=== PATIENT | male | born 1960 | race Caucasian/White ===

== ENCOUNTER → 2024-01-02 12:32 | Outpatient (REF) | payer MEDICARE, OTHER, SELFPAY ==
[2024-01-02 13:38] LABS: % Basophils 0.9 % (0-2); % Eosinophils 0.7 % (0-6); % Immature Granulocytes 0.4 % (0-0.5); % Monocytes 8.5 % (1.7-9.3); % Neutrophils 72.5 % (42.2-75.2); Absolute Basophils 0.1 10^3/uL (0-0.2); Absolute Eosinophils 0.1 10^3/uL (0-0.7); Absolute Lymphocytes 1.3 10^3/uL (1.2-3.4); Absolute Monocytes 0.7 10^3/uL (0.1-0.6); Absolute Neutrophils 5.5 10^3/uL (1.4-6.5); Hematocrit 49.3 % (39.0-52.0); Hemoglobin 17.4 g/dL (13.0-18.0); Mean Corp Hgb Conc. 35.3 g/dL (33.0-37.0); Mean Corpuscular Hgb 31.4 pg (27.0-31.0); Mean Platelet Volume 9.4 fL (7.4-10.4); Nucleated Red Blood Cells % 0 % (-); Platelet Count 239 10^3/uL (130-400); Red Blood Cell Count 5.54 10^6/uL (4.70-6.10); Red Cell Dist. Width 12.5 % (11.5-14.5); White Blood Cell Count 7.6 10^3/uL (4.8-10.8)
[2024-01-02 14:09] LABS: Iron 182 ug/dl (49-181)
[2024-01-02 14:20] LABS: Percent Saturation 77 % (20-50); Total Iron Binding Capacity 235 ug/dl (261-462)
== END ==
LOC: REG 12:32
PROVIDERS: ATTENDING PHYSICIAN Internal Medicine Hematology & Oncology; FAMILY PHYSICIAN Internal Medicine
DX: E83.110 Hereditary hemochromatosis (principal); C64.2 Malignant neoplasm of left kidney, except renal pelvis; Q44.6 Cystic disease of liver
CPT/HCPCS: 36415; 82728; 83540; 83550; 85025

== ENCOUNTER 2024-01-11 13:18 | Outpatient (RCR) | payer MEDICARE, OTHER, SELFPAY ==
[2024-01-11 13:52] VITALS: BP 120/72
[2024-01-11 14:18] VITALS: BP 107/74
[2024-01-11 14:20] VITALS: BP 106/68
[2024-01-11 14:32] VITALS: BP 109/72
[2024-01-11 14:45] VITALS: BP 94/62
== END 2024-01-17 23:59 | disposition home or self-care (01) ==
LOC: OID 13:18
PROVIDERS: ATTENDING PHYSICIAN Internal Medicine Hematology & Oncology; FAMILY PHYSICIAN Internal Medicine
DX: E83.110 Hereditary hemochromatosis (principal); C64.2 Malignant neoplasm of left kidney, except renal pelvis; Q44.6 Cystic disease of liver
CPT/HCPCS: 99195

== ENCOUNTER → 2024-01-21 14:41 | Outpatient (REF) | payer MEDICARE, OTHER, SELFPAY | LOC: HWRAD 14:41 | PROVIDERS: ATTENDING PHYSICIAN Internal Medicine | DX: M54.50 Low back pain, unspecified (principal); G89.29 Other chronic pain; M54.6 Pain in thoracic spine | CPT/HCPCS: 72072; 72110 ==

== ENCOUNTER → 2024-02-23 08:41 | Outpatient (REF) | payer MEDICARE, OTHER, SELFPAY ==
[2024-02-23 10:04] LABS: ALT (SGPT) 26 U/L (0-50); AST (SGOT) 30 U/L (17-59); Albumin 4.3 g/dl (3.5-5.0); Alkaline Phosphatase 71 U/L (38-126); Blood Urea Nitrogen 18 mg/dl (9-20); Calcium 9.4 mg/dl (8.4-10.2); Carbon Dioxide 31 mmol/L (22-30); Chloride 100 mmol/L (98-107); Glucose 92 mg/dl (70-99); HDL Cholesterol 88 mg/dl; LDL Cholesterol, Calculated 131 mg/dl; Potassium 4.7 mmol/L (3.5-5.1); Sodium 137 mmol/L (135-145); Total Bilirubin 1.2 mg/dl (0.2-1.3); Total Cholesterol 236 mg/dl (50-199); Total Protein 6.6 g/dl (6.3-8.2); Triglyceride 86 mg/dl (10-149); Very Low Density Lipoprotein 17 mg/dl (0-30); eGFR > 60.00
[2024-02-23 10:19] LABS: Free T3 3.27 pg/ml (2.77-5.27); Free T4 1.24 ng/dl (0.78-2.19)
[2024-02-23 10:32] LABS: PSA, Total - Screen 1.21 ng/ml (0.0-4.0)
[2024-02-23 11:11] LABS: TSH 0.81 uIU/ml (0.47-4.68)
== END ==
LOC: REG 08:41
PROVIDERS: ATTENDING PHYSICIAN Internal Medicine
DX: E27.40 Unspecified adrenocortical insufficiency (principal); R16.0 Hepatomegaly, not elsewhere classified; E78.5 Hyperlipidemia, unspecified; E03.9 Hypothyroidism, unspecified; Z12.5 Encounter for screening for malignant neoplasm of prostate
CPT/HCPCS: 36415; 80053; 80061; 84439; 84443; 84481; G0103

== ENCOUNTER → 2024-05-19 06:44 | Outpatient (REF) | payer MEDICARE, OTHER, SELFPAY | LOC: PAVMRI 06:44 | PROVIDERS: ATTENDING PHYSICIAN Physical Medicine & Rehabilitation; FAMILY PHYSICIAN Internal Medicine | DX: M48.07 Spinal stenosis, lumbosacral region (principal); M48.062 Spinal stenosis, lumbar region with neurogenic claudication; M43.16 Spondylolisthesis, lumbar region; M43.17 Spondylolisthesis, lumbosacral region | CPT/HCPCS: 72148 ==

== ENCOUNTER → 2024-05-20 10:57 | Outpatient (REF) | payer MEDICARE, OTHER, SELFPAY ==
[2024-05-20 12:07] LABS: % Basophils 0.9 % (0-2); % Eosinophils 0.9 % (0-6); % Immature Granulocytes 0.4 % (0-0.5); % Monocytes 10.5 % (1.7-9.3); % Neutrophils 71.3 % (42.2-75.2); Absolute Basophils 0.1 10^3/uL (0-0.2); Absolute Eosinophils 0.1 10^3/uL (0-0.7); Absolute Lymphocytes 1.2 10^3/uL (1.2-3.4); Absolute Monocytes 0.8 10^3/uL (0.1-0.6); Absolute Neutrophils 5.3 10^3/uL (1.4-6.5); Hematocrit 48.1 % (39.0-52.0); Hemoglobin 16.7 g/dL (13.0-18.0); Mean Corp Hgb Conc. 34.7 g/dL (33.0-37.0); Mean Corpuscular Hgb 31.9 pg (27.0-31.0); Mean Platelet Volume 9.2 fL (7.4-10.4); Nucleated Red Blood Cells % 0 % (-); Platelet Count 243 10^3/uL (130-400); Red Blood Cell Count 5.23 10^6/uL (4.70-6.10); Red Cell Dist. Width 12.7 % (11.5-14.5); White Blood Cell Count 7.4 10^3/uL (4.8-10.8)
[2024-05-20 12:27] LABS: Iron 174 ug/dl (49-181)
[2024-05-20 12:37] LABS: Percent Saturation 71 % (20-50); Total Iron Binding Capacity 242 ug/dl (261-462)
[2024-05-20 13:05] LABS: Ferritin 99.8 ng/ml (17.9-464.0)
== END ==
LOC: REG 10:57
PROVIDERS: ATTENDING PHYSICIAN Internal Medicine Hematology & Oncology; FAMILY PHYSICIAN Internal Medicine
DX: E83.110 Hereditary hemochromatosis (principal); C64.2 Malignant neoplasm of left kidney, except renal pelvis; Q44.6 Cystic disease of liver; K76.89 Other specified diseases of liver
CPT/HCPCS: 36415; 82728; 83540; 83550; 85025

== ENCOUNTER → 2024-09-16 11:19 | Outpatient (REF) | payer MEDICARE, OTHER, SELFPAY ==
[2024-09-16 12:17] LABS: Hematocrit 47.7 % (39.0-52.0); Hemoglobin 16.6 g/dL (13.0-18.0); Mean Corp Hgb Conc. 34.8 g/dL (33.0-37.0); Mean Corpuscular Volume 91.9 fL (80.0-94.0); Nucleated Red Blood Cells % 0 % (-); Platelet Count 254 10^3/uL (130-400); Red Cell Dist. Width 12.7 % (11.5-14.5)
[2024-09-16 12:48] LABS: Iron 177 ug/dl (49-181)
[2024-09-16 13:00] LABS: Total Iron Binding Capacity 256 ug/dl (261-462)
[2024-09-16 13:24] LABS: Ferritin 161.0 ng/ml (17.9-464.0)
== END ==
LOC: REG 11:19
PROVIDERS: ATTENDING PHYSICIAN Internal Medicine Hematology & Oncology; FAMILY PHYSICIAN Internal Medicine
DX: E83.110 Hereditary hemochromatosis (principal); C64.2 Malignant neoplasm of left kidney, except renal pelvis; Q44.6 Cystic disease of liver
CPT/HCPCS: 36415; 82728; 83540; 83550; 85025

== ENCOUNTER → 2024-11-21 10:39 | Outpatient (REF) | payer MEDICARE, OTHER, SELFPAY ==
[2024-11-21 11:50] LABS: Blood Urea Nitrogen 23 mg/dl (9-20); Iron 226 ug/dl (49-181)
[2024-11-21 11:59] LABS: Total Iron Binding Capacity 241 ug/dl (261-462)
[2024-11-21 12:49] LABS: Hematocrit 47.9 % (39.0-52.0); Hemoglobin 17.0 g/dL (13.0-18.0); Mean Corp Hgb Conc. 35.5 g/dL (33.0-37.0); Mean Corpuscular Volume 92.8 fL (80.0-94.0); Nucleated Red Blood Cells % 0 % (-); Platelet Count 250 10^3/uL (130-400); Red Cell Dist. Width 12.7 % (11.5-14.5)
[2024-11-21 13:52] LABS: Ferritin 200.0 ng/ml (17.9-464.0)
== END ==
LOC: MRI 3T 10:39
PROVIDERS: ATTENDING PHYSICIAN Physical Medicine & Rehabilitation; FAMILY PHYSICIAN Internal Medicine
DX: M54.16 Radiculopathy, lumbar region (principal); Z01.812 Encounter for preprocedural laboratory examination; C64.2 Malignant neoplasm of left kidney, except renal pelvis; E83.110 Hereditary hemochromatosis
CPT/HCPCS: 36415; 72146; 82565; 82728; 83540; 83550; 84520; 85025

== ENCOUNTER → 2024-12-16 13:23 | Outpatient (REF) | payer MEDICARE, OTHER, SELFPAY | LOC: PAVMRI 13:23 | PROVIDERS: ATTENDING PHYSICIAN Internal Medicine | DX: Q44.6 Cystic disease of liver (principal); R16.0 Hepatomegaly, not elsewhere classified; D49.0 Neoplasm of unspecified behavior of digestive system | CPT/HCPCS: 74183; A9575 ==

== ENCOUNTER 2024-12-19 13:29 | Outpatient (RCR) | payer MEDICARE, OTHER, SELFPAY ==
[2024-12-19 13:48] VITALS: BP 122/77
[2024-12-19 14:20] VITALS: BP 115/71
[2024-12-19 14:29] VITALS: BP 95/70
[2024-12-19 14:39] VITALS: BP 92/65
[2024-12-19 15:00] VITALS: BP 109/75
== END 2024-12-22 10:10 | disposition home or self-care (01) ==
LOC: OID 13:29
PROVIDERS: ATTENDING PHYSICIAN Internal Medicine Hematology & Oncology; FAMILY PHYSICIAN Internal Medicine
DX: E83.110 Hereditary hemochromatosis (principal); C64.2 Malignant neoplasm of left kidney, except renal pelvis; Q44.6 Cystic disease of liver
CPT/HCPCS: 99195

== ENCOUNTER → 2025-01-21 14:21 | Outpatient (REF) | payer MEDICARE, OTHER, SELFPAY ==
[2025-01-21 19:02] LABS: Urine Character Cloudy (Clear)
[2025-01-21 19:19] LABS: Urine Red Blood Cell 0-2 /HPF (0-2); Urine Squamous Cell 0-2 /LPF (Few); Urine White Cell 0-2 /HPF (0-5)
== END ==
LOC: CLAB 14:21
PROVIDERS: ATTENDING PHYSICIAN Specialist
DX: N39.0 Urinary tract infection, site not specified (principal)
CPT/HCPCS: 81003; 81015; 87086

== ENCOUNTER → 2025-02-18 13:40 | Outpatient (REF) | payer MEDICARE, OTHER, SELFPAY ==
[2025-02-18 14:38] LABS: Hematocrit 51.5 % (39.0-52.0); Hemoglobin 17.6 g/dL (13.0-18.0); Mean Corp Hgb Conc. 34.2 g/dL (33.0-37.0); Mean Corpuscular Volume 93.8 fL (80.0-94.0); Nucleated Red Blood Cells % 0 % (-); Platelet Count 239 10^3/uL (130-400); Red Cell Dist. Width 12.3 % (11.5-14.5)
[2025-02-18 15:21] LABS: Iron 132 ug/dl (49-181)
[2025-02-18 15:30] LABS: Total Iron Binding Capacity 260 ug/dl (261-462)
[2025-02-18 15:35] LABS: Free T3 3.52 pg/ml (2.77-5.27)
[2025-02-18 15:49] LABS: TSH 0.21 uIU/ml (0.47-4.68)
[2025-02-18 15:53] LABS: Ferritin 104.0 ng/ml (17.9-464.0)
== END ==
LOC: REG 13:40
PROVIDERS: ATTENDING PHYSICIAN Internal Medicine Hematology & Oncology; FAMILY PHYSICIAN Student in an Organized Health Care Education/Training Program
DX: E83.110 Hereditary hemochromatosis (principal); C64.2 Malignant neoplasm of left kidney, except renal pelvis; Q44.6 Cystic disease of liver; E03.9 Hypothyroidism, unspecified; R10.9 Unspecified abdominal pain; K76.89 Other specified diseases of liver; N28.89 Other specified disorders of kidney and ureter
CPT/HCPCS: 36415; 71046; 82728; 83540; 83550; 84439; 84443; 84481; 85025

== ENCOUNTER 2025-03-04 06:05 | Day surgery (SDC) | payer MEDICARE, OTHER, SELFPAY ==
[2025-02-25 13:53] VITALS: BMI 27.6
--- NOTE | 2025-02-26 09:47 | PTCARENOTE ---
Patient states he takes multiple supplements but does not know what they are. States he stopped them a week ago and will not resume them until after surgery. Patient instructed to bring printed list with all supplements listed day of surgery if he
could not get them to us prior to surgery.
[2025-03-04] VITALS (17 sets, daily range): BP systolic 5–140; BP diastolic 67–84; BMI 27.6
[2025-03-04] MEDS: NORMOSOL-R/PLASMALYTE-A 1000 IV (06:45)
[2025-03-04] MEDS: SOLU-CORTEF IV (08:05)
--- NOTE | 2025-03-04 10:38 | W.SUR.POST ---
Surgical Immediate Post Op
Note
Pre Op Diagnosis: Left renal mass
Post Op Diagnosis: Left renal mass
Procedure Performed: Robotic L partial nephrectomy, intraoperative ultrasound
Primary Surgeon: Ming
Anesthesia: GETA
Estimated Blood Loss: 50 cc
Fluids: 2.2 L
Drains/Shunts: 16F munoz, 15F LLQ TIARA
Specimens/Cultures: Left renal mass
Complications: NA
Operative Findings: See op report
[2025-03-04] MEDS: DILAUDID 0.5 MG IV ×4 (11:10→12:50)
[2025-03-04 11:11] LABS: Hematocrit 44.9 % (39.0-52.0); Hemoglobin 15.5 g/dL (13.0-18.0); Mean Corp Hgb Conc. 34.5 g/dL (33.0-37.0); Mean Corpuscular Volume 93.5 fL (80.0-94.0); Platelet Count 201 10^3/uL (130-400); Red Cell Dist. Width 12.1 % (11.5-14.5)
--- NOTE | 2025-03-04 11:20 | OR.RPT ---
Operative Report
Operative Report
Surgery Date: 03/04/2025
PREOPERATIVE DIAGNOSIS(ES):
1. Left renal mass.
POSTOPERATIVE DIAGNOSIS(ES):
1. Left renal mass.
PROCEDURE:
1. Robotic assisted laparoscopic left partial nephrectomy.
2. Intraoperative ultrasound with interpretation.
ANESTHESIA:
1. General endotracheal anesthesia
2. Local anesthesia at completion
SURGEON: Veronique Lai MD
ASSISTANTS:
1. YOKASTA Jean Baptiste
2. YOKASTA Page
IV FLUIDS: 2.2 L
ESTIMATED BLOOD LOSS: 50 cc
CLAMP TIME: 19 minutes warm ischemia time
CATHETER
1. 16-Bangladeshi Locke catheter.
2. 15-Bangladeshi TIARA drain.
SPECIMEN:
1. Left renal mass
COMPLICATIONS: None.
DISPOSITION: Stable and extubated to PACU.
Preoperative descriptors:
Mass description: Mass was approximately 2.5 cm in diameter and located in the mid to lower pole of the left kidney. The mass was exophytic and cystic in appearance.
Vessel anatomy: The patient had 1 left renal artery and 1 left renal vein.
Findings:
1. Collecting system entry: There were no sites of collecting system entry.
2. The mass appeared approximately 3 cm, exophytic and cystic in nature with multiple lobulations and a simple appearing lateral cystic portion. No evidence of tumor violation during excision.
INDICATIONS: The patient is a 65 year old male who was referred for evaluation and management of a 2.4 cm left renal mass. Given the concern for malignancy, intervention was recommended. The mass had grown from 1.4 cm to 2.4 cm in 3 years on MRI
imaging and was concerning for neoplasm. The mass was felt to be amenable to nephron sparing surgery, so a robotic assisted laparoscopic partial nephrectomy was offered. After full discussion of treatment options, the patient elected to proceed with
a robot-assisted laparoscopic left partial nephrectomy. The risks and benefits of this approach were discussed with the patient. All questions were answered and he signed the surgical consent.
OPERATIVE NOTE: The patient was seen in the preoperative holding area. All remaining questions were answered and the patient was transferred to the operating room. Here, the patient was correctly identified by the operating room staff. General
anesthesia was induced without incident. The patient was given preoperative doses of ancef. A 16-Bangladeshi Locke catheter was placed per urethra with 10 mL of water in the balloon. This was placed to gravity drainage.
POSITIONING: We placed the patient into a left side up flank position with careful attention paid to all pressure points. The table was flexed. An axillary roll was
placed. The iliac crest was positioned just below the table break. A beanbag was utilized. Rolled towels were placed posteriorly to the patient to prevent the patient from moving toward supine. The patient's downside arm was placed on an arm board
and positioned perpendicular to the axis of the table. The arm was softly padded and secured to the armboard. The upside arm was kept to the patient's side in an anatomic position with the thumb placed outward. The shoulder, forearm, and elbow were
carefully supported and padded, followed by the hands being padded and tape used to secure posteriorly to the table. The downside leg was gently flexed and the upside leg was slightly extended with pillows and blankets used to provide ample support
to all pressure points. Tape was placed securely but not tightly over the hips and chest taking care not to overly tighten the chest strapping in order to secure the patient to the table. After shaving and using a chlorhexidine prep stick, we then
prepped and draped in the usual fashion.
ACCESS: A Veress needle was placed at the lateral rectus line even with the umbilicus without issue and the abdomen was insufflated to develop a pneumoperitoneum. Pneumoperitoneum was 15 mmHg for port placement and thereafter decreased to 12 mmHg
throughout the remainder of the case. We first placed an 8 mm lateral rectus port, followed by the camera. Upon entry into the abdomen, we performed a brief examination noting no abnormalities nor injuries. Next, we visualized placement of 3
additional robotic ports. These were placed in a straight line along the left paramedian line. Three 8mm robotic working ports were placed in addition to the camera port starting a finger's breadth below the costal margin and traveling caudally with
each robotic port spaced approximately a hands breadth from each other to prevent clashing. A 12mm supraumbilical airseal visual merchandising assistant port and infraumbilical 5 mmm visual merchandising assistant port were then placed. After we inserted all the ports and confirmed no
issues with gaining access, we docked the robot.
DISSECTION:
We mobilized the descending colon from Gerota's fascia without any inadvertent injury or bleeding. The tail of the pancreas, splenorenal ligament, and the spleen were mobilized off Gerota's fascia superiorly. The 4th arm was applied early in this
case for improved exposure. We found the left gonadal vein as well as the ureter at the tail of Gerota's fascia. These were carefully lifted off the psoas fascia without any inadvertent injury or problems. Using the 4th arm for lateral traction, we
were able to dissect out the renal hilum using a combination of blunt dissection and focused monopolar cautery. We encountered a small perforating vessel on the inferior aspect of the left renal vein that was cauterized, and the os was then oversewn
with 4-0 Prolene suture. We were able to get a vessea loop around the artery that aided retraction for future bulldog clamping. We then proceeded to fully mobilize the kidney by incising Gerota's fascia. The kidney was mobilized from its attachments
to both Gerota's fascia as well as the perirenal fat as needed so that the mass could be viewed head-on to the camera.
TUMOR LOCALIZATION:
After exposing the kidney, we then took time to properly identify the tumor in the expected location. We used the laparoscopic intraoperative ultrasound drop-in probe to carefully survey the retroperitoneum and study the spatial aspects of the renal
mass before using monopolar cautery to abiel the resection line on the kidney capsule surface.
TUMOR RESECTION:
One bulldog clamps was placed across the renal artery. A renal vein bulldog clamp was not applied. Sharp dissection was used to incise the renal capsule and upward tension helped to clarify the border between the mass and normal parenchyma.
Following the contour of the mass, with care to avoid positive margins, the lesion was dissected off the normal kidney. Along the way small bleeding vessels were cauterized. Sharp dissection continued until the mass was completely excised. A
visually appreciated negative margin was noted throughout the entirety of the mass. The freed specimen was placed in a 10 mm EndoCatch bag.
RENORRHAPHY:
The inner layer of the renorrhaphy was completed with a running 3-0 V-Loc suture with with clips on either end at the level of the capsule. All bleeding vessel lumens were closed with this layer. A second layer was completed with running 0-V-Loc
suture in a horizontal mattress fashion with clips on each side of the defect. This layer was tightened with a sliding clip technique. A surgicel bolster was applied to the renorrhaphy bed before full closure. At this point, the bulldog clamps were
removed. There was no significant arterial bleeding noted from the defect. Additional surgicel bolsters were applied atop the renorrhaphy. Gerota's fascia was then closed using a running 0 V-Loc to re-retroperitonealize the kidney. The vessel loop
was then removed and the oversewn area of the renal vein was reinforced.
EXTRACTION AND CLOSURE: The specimen was extracted from the midline after extension of the 12 mm visual merchandising assistant port incision along the linea alba. A 15-Bangladeshi TIARA drain was placed via the most caudal port along the left paramedian line and secured with
2-0 Nylon. There were no difficulties with extraction and ports were all removed. Next, the fascia of the specimen extraction port was closed using running 0 PDS sutures. All skin incisions were closed with 4-0 Monocryl subcuticular sutures and
Dermabond. Additional local anesthetic was applied at all port sites. Sponge, needle, and instrument counts were correct at the end of the case. The patient was then awoken from general anesthesia and transferred to the PACU in stable
condition.
[2025-03-04] MEDS: NSS with KCL 20 MEQ 1000 IV ×2 (15:35→22:52)
[2025-03-04] MEDS: TYLENOL 325 MG PO ×2 (15:36→22:48)
[2025-03-04] MEDS: SOLU-CORTEF 100 MG IV ×2 (15:36→23:52)
[2025-03-04 15:53] LABS: Blood Urea Nitrogen 14 mg/dl (9-20); Calcium 7.8 mg/dl (8.4-10.2); Carbon Dioxide 24 mmol/L (22-30); Chloride 102 mmol/L (98-107); Estimated Creatinine Clearance 87 ml/min; Glucose 113 mg/dl (70-99); Sodium 130 mmol/L (135-145); eGFR > 60.00
[2025-03-04 15:57] LABS: Potassium 4.0 mmol/L (3.5-5.1)
[2025-03-04] MEDS: MORPHINE SULFATE 2 MG IV ×3 (16:09→23:50)
[2025-03-04] MEDS: ROXICODONE 5 MG PO ×2 (18:33→22:48)
[2025-03-04] MEDS: HEPARIN 5000 UNITS SC (22:47)
[2025-03-05] MEDS: TYLENOL PO ×3 (00:12→06:10)
[2025-03-05] MEDS: ROXICODONE 5 MG PO ×4 (03:21→17:17)
[2025-03-05] MEDS: HEPARIN 5000 UNITS SC ×3 (03:21→21:01)
[2025-03-05] MEDS: SYNTHROID 100 MCG PO (03:21)
[2025-03-05 07:19] LABS: Hematocrit 42.2 % (39.0-52.0); Hemoglobin 14.5 g/dL (13.0-18.0); Mean Corp Hgb Conc. 34.4 g/dL (33.0-37.0); Mean Corpuscular Volume 93.6 fL (80.0-94.0); Platelet Count 198 10^3/uL (130-400); Red Cell Dist. Width 12.4 % (11.5-14.5)
[2025-03-05 07:25] VITALS: BP 134/78
[2025-03-05] MEDS: HYDROCORTONE/CORTEF 50 MG PO ×3 (07:25→23:21)
[2025-03-05 07:43] LABS: Blood Urea Nitrogen 11 mg/dl (9-20); Calcium 8.2 mg/dl (8.4-10.2); Carbon Dioxide 26 mmol/L (22-30); Chloride 107 mmol/L (98-107); Estimated Creatinine Clearance 87 ml/min; Glucose 110 mg/dl (70-99); Potassium 4.2 mmol/L (3.5-5.1); Sodium 135 mmol/L (135-145); eGFR > 60.00
[2025-03-05] MEDS: NSS with KCL 20 MEQ 1000 IV ×2 (09:09→20:27)
[2025-03-05] MEDS: TYLENOL 325 MG PO ×4 (09:10→21:01)
--- NOTE | 2025-03-05 09:49 | W.PN.URO.CBU ---
Today's Communication / Plan
-
F/u H&H at 1200
Regular diet
Pain control
Monitor TIARA drain
Assessment / Plan
-
65M with L renal mass s/p robotic L partial Nx 03/04/25. Postoperatively doing well.
Plan:
- H&H at 1200
- Continue TIARA drain - monitor output
- Serial abd exams
- Regular diet
- Encouraged patient to ambulate to chair today - he is having pain in his left leg that is likely due to post-operative pain in the psoas muscle
- Pain control PRN
- Continue IVF
- Hydrocortisone 50 mg PO q8h today -> transition to home schedule tomorrow
- DVT PPx
- Patient will stay today
Diagnosis
-
Date of Service: March 05, 2025
-
Patient Diagnosis: L renal mass
Surgery: Robotic L partial Nx, 03/05/25
Subjective
-
Had severe left upper quadrant and flank pain overnight. Required pain meds with improvement
No other symptoms, no generalized abd pain. Denies fevers/chills, nausea/vomiting, dizziness/light-headedness
Has not ambulated or gotten out of bed yet
Tolerating some regular diet
UOP adequate > 3 L - yellow
Objective
-
Vital Signs
Temp Pulse Resp BP Pulse Ox
98.1 F 94 17 134/78 97
03/05/25 07:25 03/05/25 07:25 03/05/25 07:25 03/05/25 07:25 03/05/25 07:25
Intake and Output
03/04/25 03/05/25 03/06/25
06:59 06:59 06:59
Intake Total 2140 / 2140
Output Total 3255 / 3255
Balance -1115 / -1115
Intake:
Oral fluids 1440 / 1440
IV fluids (Total) 700 / 700
Normosol 700 / 700
Output:
Drain Output (Total)
Left Lower Abdomen Negro-
[place]apier A
Urine, Munoz 3200 / 3200
Laboratory Results
03/05/25 06:29
Physical Exam
-
General - well developed, well nourished, no acute distress
Chest - clear bilaterally
Abdomen - soft, mildly distended, midline and 2 cephalad incisions with mild ecchymosis around incision site, no flank hematoma/bruising, appropriately TTP, non-peritonitic, mild guarding
Genitalia - normal, munoz yellow
Skin - warm & dry with no rash
Neuro - AOx3
Extremities - pain with movement of L leg
Incision - clean, dry
Dressing - clean, dry, intact
[2025-03-05 11:56] LABS: Hematocrit 45.6 % (39.0-52.0); Hemoglobin 15.5 g/dL (13.0-18.0); Mean Corp Hgb Conc. 34.0 g/dL (33.0-37.0); Mean Corpuscular Volume 93.4 fL (80.0-94.0); Nucleated Red Blood Cells % 0 % (-); Platelet Count 201 10^3/uL (130-400); Red Cell Dist. Width 12.5 % (11.5-14.5)
--- NOTE | 2025-03-05 13:03 | CM ---
patient seen at bedside
Left renal mass.
PROCEDURE: Robotic assisted laparoscopic left partial nephrectomy
TIARA drain, munoz
IA completed
Lives with his mother in a 1 story home, 1 LOC
he states his sister will be staying at his home when he is dc
PLOF: independent
Denies VN/Rehab
PCP: Malou Rausch
Pharmacy: [facility]
PLAN: Home, watch for vn needs
[2025-03-05] MEDS: MORPHINE SULFATE 2 MG IV ×2 (14:27→23:23)
[2025-03-05 15:06] VITALS: BP 124/77
[2025-03-05] MEDS: MYLICON 80 MG PO (17:17)
[2025-03-05 22:51] VITALS: BP 122/74
[2025-03-06] MEDS: OCEAN, SALINE MIST 2 SPRAYS NASAL (00:20)
[2025-03-06] MEDS: TYLENOL 325 MG PO ×3 (02:02→09:18)
[2025-03-06] MEDS: ROXICODONE 5 MG PO ×3 (02:30→15:19)
--- NOTE | 2025-03-06 05:17 | PTCARENOTE ---
patient complained of nasal congestion. ARLEEN Ellis notified. new order received. see MAY for administration. POC ongoing.
[2025-03-06] MEDS: SYNTHROID 100 MCG PO (06:05)
[2025-03-06] MEDS: HEPARIN 5000 UNITS SC ×2 (06:05→13:33)
[2025-03-06 06:59] LABS: Hematocrit 43.4 % (39.0-52.0); Hemoglobin 15.0 g/dL (13.0-18.0); Mean Corp Hgb Conc. 34.6 g/dL (33.0-37.0); Mean Corpuscular Volume 93.7 fL (80.0-94.0); Nucleated Red Blood Cells % 0 % (-); Platelet Count 206 10^3/uL (130-400); Red Cell Dist. Width 12.3 % (11.5-14.5)
[2025-03-06 07:29] VITALS: BP 124/76
[2025-03-06 08:29] LABS: Blood Urea Nitrogen 10 mg/dl (9-20); Calcium 8.5 mg/dl (8.4-10.2); Carbon Dioxide 26 mmol/L (22-30); Chloride 107 mmol/L (98-107); Estimated Creatinine Clearance 99 ml/min; Glucose 98 mg/dl (70-99); Potassium 4.1 mmol/L (3.5-5.1); Sodium 137 mmol/L (135-145); eGFR > 60.00
[2025-03-06] MEDS: TYLENOL PO (13:33)
[2025-03-06 15:21] VITALS: BP 116/76
--- NOTE | 2025-03-06 16:49 | CM ---
discharge today
met with patient - IMM explained & signed
munoz removed, drain removed
PLAN: Home, no needs
sister to transport
[2025-03-06] MEDS: FLUZONE HIGH-DOSE 2025-26 0.5 ML IM (16:50)
--- NOTE | 2025-03-06 17:00 | W.PN.URO.CBU ---
Today's Communication / Plan
-
DC home. Patient voided with low PVR. I removed the TIARA drain intact.
Assessment / Plan
-
65M with L renal mass s/p robotic L partial Nx 03/04/25. Postoperatively doing well.
Plan:
- DC TIARA and munoz
- Regular diet
- Resume home hydrocortisone doses tomorrow
- DVT PPx
- DC home
Diagnosis
-
Date of Service: March 06, 2025
-
Patient Diagnosis:
Post Op Day:
Patient Diagnosis: L renal mass
Surgery: Robotic L partial Nx, 03/05/25
Subjective
-
Patient improved from yesterday. Tolerating diet, passing flatus. Ambulating.
Objective
-
Vital Signs
Temp Pulse Resp BP Pulse Ox
97.4 F 87 20 116/76 97
03/06/25 15:21 03/06/25 15:21 03/06/25 15:21 03/06/25 15:21 03/06/25 15:21
Intake and Output
03/05/25 03/06/25 03/07/25
06:59 06:59 06:59
Intake Total 2140 / 2140 600 / 600 600 / 600
Output Total 3255 / 3255 3520 / 3520 725 / 725
Balance -1115 / -1115 -2920 / -2920 -125 / -125
Intake:
Oral fluids 1440 / 1440 600 / 600 600 / 600
IV fluids (Total) 700 / 700
Normosol 700 / 700
Output:
Drain Output (Total) 55 / 55 140 / 140 115 / 115
Left Lower Abdomen Negro- 55 / 55 140 / 140 115 / 115
Napier A
Urine, Munoz 3200 / 3200 3380 / 3380 500 / 500
Urine, Voided 110 / 110
Laboratory Results
03/06/25 06:44
03/06/25 06:44
Physical Exam
-
General - well developed, well nourished, no acute distress
Chest - clear bilaterally
Abdomen - soft, appropriately TTP, mild distension, stable ecchymosis at port sites, no flank hematoma/tenderness
Genitalia - munoz yellow
Skin - warm & dry with no rash
Neuro - AOx3, no motor deficits
Extremities - no clubbing, no cyanosis, no edema
Incision - clean, dry
Dressing - clean, dry, intact
== END 2025-03-06 17:02 | disposition home or self-care (01) ==
LOC: SDS 06:05
PROVIDERS: ATTENDING PHYSICIAN Student in an Organized Health Care Education/Training Program
DX: C64.2 Malignant neoplasm of left kidney, except renal pelvis (principal); N28.89 Other specified disorders of kidney and ureter
CPT/HCPCS: 50543; 80048; 82570; 85025; 85027; 86900; 86901; 88307; 90662; C1729; G0008